=== PATIENT | female | born 1985 | race Two or more races ===

== ENCOUNTER 2019-03-16 11:13 | Emergency (ER) | payer MEDICAID ==
[~2019-03-16] VITALS: Ht 167.6 cm; Wt 68.9 kg
[2019-03-16 11:20] VITALS: BP 114/76
[2019-03-16] MEDS ORDERED: LIDOCAINE 1%-EPI 1:100,000 20 ML VIAL ONE (12:36)
[2019-03-16] MEDS ORDERED: TDAP [DIPH/PERTUSSIS/TET] 0.5 ML VIAL IM ONE ×2 (13:00→14:15)
[2019-03-16] MEDS ORDERED: ACETAMINOPHEN ES 500 MG TABLET PO ONE (13:00)
[2019-03-16] MEDS ORDERED: ACETAMINOPHEN ES 500 MG TABLET ONE (14:14)
== END 2019-03-16 15:01 | disposition home or self-care (01) ==
LOC: ER 11:14
DX: S71.112A Laceration without foreign body, left thigh, initial encounter (principal); S81.012A Laceration without foreign body, left knee, initial encounter; S81.812A Laceration without foreign body, left lower leg, initial encounter; W18.02XA Striking against glass with subsequent fall, initial encounter; Y93.E1 Activity, personal bathing and showering; Y92.89 Other specified places as the place of occurrence of the external cause; Y99.8 Other external cause status
CPT/HCPCS: 12002; 73552; 73590; 90471; 90715; 99284; A6403 ×2; J3490

== ENCOUNTER 2019-03-24 16:24 | Emergency (ER) | payer MEDICAID ==
[~2019-03-24] VITALS: Ht 167.6 cm; Wt 70.8 kg
[2019-03-24 16:59] VITALS: BP 121/92
--- NOTE | 2019-03-24 17:20 | NUR ---
SUTURE REMOVED BY [employer]ATOR
--- NOTE | 2019-03-24 17:23 | NUR ---
Patient discharged to home in stable condition. Written and verbal after care instructions given. Patient verbalizes understanding of instruction.
== END 2019-03-24 17:24 | disposition home or self-care (01) ==
LOC: ER 16:31
DX: S81.012D Laceration without foreign body, left knee, subsequent encounter (principal); S71.112D Laceration without foreign body, left thigh, subsequent encounter; W25.XXXD Contact with sharp glass, subsequent encounter